=== PATIENT | female | born 1965 | race Caucasian/White ===

== ENCOUNTER 2023-07-12 13:08 | Emergency (ER) | payer BC ==
[2023-07-12 13:20] VITALS: PULSE 56
[2023-07-12 14:18] VITALS: BP 141/80
== END 2023-07-12 14:05 | disposition home or self-care (01) ==
LOC: FB.ED 13:08
DX: R55 Syncope and collapse (principal); E03.9 Hypothyroidism, unspecified; Z91.038 Other insect allergy status; Z91.048 Other nonmedicinal substance allergy status; Z91.041 Radiographic dye allergy status; Z79.899 Other long term (current) drug therapy
CPT/HCPCS: 99282